=== PATIENT | male | born 1975 | race Two or more races ===

== ENCOUNTER 2019-09-23 15:11 | Inpatient (IN) | payer OTHER ==
[~2019-09-23] VITALS: Ht 175.3 cm; Wt 81.6 kg
--- NOTE | 2019-09-23 15:33 | NUR ---
CAME IN FOR R SIDED RIB PAIN, PAINFUL UPON INHALATION. TO ER BED 8, HOOKED T O MONITOR, FEBRILE AT 101.2F ORAL TEMP, CHANGED TO HOSP GOWN, COOLING MEASURES DONE, AWAITING MD BYERS.
--- NOTE | 2019-09-23 15:36 | NUR ---
DR PAINTER AT BEDSIDE
[2019-09-23] MEDS ORDERED: ACETAMINOPHEN ES 500 MG TABLET PO ONE (16:00)
[2019-09-23] MEDS ORDERED: ACETAMINOPHEN ES 500 MG TABLET ONE (16:03)
[2019-09-23 16:17] LABS: BASOPHILS % (AUTO) 0.4 % (0.0-2.0); EOSINOPHILS % (AUTO) 0.7 % (0.0-6.0); HEMATOCRIT 35 % (39-51); LYMPHOCYTES # (AUTO) 0.9 /CMM (0.8-4.8); LYMPHOCYTES % (AUTO) 11.1 % (20.0-44.0); MEAN CORPUSCULAR HGB CONC 34 g/dl (31.0-36.0); MEAN CORPUSCULAR VOLUME 86 fL (80-96); NEUTROPHILS # (AUTO) 5.8 /CMM (1.8-8.9); NEUTROPHILS % (AUTO) 74.8 % (43.0-81.0); PLATELET COUNT (AUTO) 431 /CMM (150-450); RED BLOOD CELL COUNT(AUTO) 4.12 MIL/uL (4.5-6.0); WHITE BLOOD COUNT (AUTO) 7.8 K/uL (4.3-11.0)
[2019-09-23 16:24] LABS: APPEARANCE,URINE Clear (CLEAR); BILIRUBIN,URINE SMALL (NEGATIVE); BLOOD, URINE Negative Ery/uL (NEGATIVE); KETONES,URINE Negative (NEGATIVE); LEUKOCYTE ESTERASE ,URINE Negative (NEGATIVE); NITRITE, URINE Negative (NEGATIVE); PH,URINE 8.5 (5.0-8.0); PROTEIN,URINE Trace mg/dl (NEGATIVE); UGLUCOSE Negative (NEGATIVE); UROBILINOGEN,URINE >=8.0 EU/dL (0.2)
[2019-09-23 16:25] LABS: COLOR,URINE DARK YELLOW (YELLOW)
[2019-09-23 16:30] LABS: CALCIUM, SERUM 9.1 mg/dL (8.5-10.1); CARBON DIOXIDE 32 mmol/L (21-32); CHLORIDE 96 mmol/L (98-107); CREATININE 1.3 mg/dL (0.6-1.3); GLUCOSE 101 mg/dL (74-106); POTASSIUM 3.7 mmol/L (3.5-5.1); SODIUM SERUM 134 mmol/L (136-145); UREA NITROGEN, BLOOD 9 mg/dL (7-18)
[2019-09-23 16:34] LABS: ALANINE AMINOTRANSFERASE 30 U/L (12-78); ALKALINE PHOSPHATASE 65 U/L (46-116); ASPARTATE AMINOTRANSFERASE 22 U/L (15-37); BILIRUBIN,DIRECT 0.4 mg/dL (0.0-0.2); BILIRUBIN,TOTAL 1.6 mg/dL (0.2-1.0); TOTAL PROTEIN, SERUM 7.5 g/dL (6.4-8.2)
[2019-09-23 16:42] LABS: BACTERIA,URINE None seen /HPF (None Seen); RBC,URINE 0-2 /HPF (0-2); SQUAMOUS EPITHELIAL CELL,UR Few /HPF (None Seen); WBC,URINE 0-2 /HPF (0-3)
[2019-09-23] MEDS ORDERED: AZITHROMYCIN 500 MG in IV D5W 250 ML IV ONE (17:30)
[2019-09-23] MEDS ORDERED: CEFTRIAXONE 1 G in IV D5W 50 ML IV ONE (17:30)
--- NOTE | 2019-09-23 17:31 | NUR ---
CALLED FOR TELE BED AND SUBMITTED MOVE SHEET.
[2019-09-23] MEDS ORDERED: CEFTRIAXONE 1GM BAG (ER ONLY) 50 ML IV ONE (17:48)
--- NOTE | 2019-09-23 17:48 | NUR ---
REPORT GIVEN TO NAHID ROSE. PT AWAITING TRANSFER TO FLOOR.
[2019-09-23 18:07] LABS: C-REACTIVE PROTEIN 12.5 mg/dL (0.0-0.9)
[2019-09-23] MEDS ORDERED: ONDANSETRON HCL/PF 4 MG/2 ML VIAL IVP PRN (18:30)
[2019-09-23] MEDS ORDERED: Z GUARD REMEDY 2 OZ OINT TP PRN (18:30)
[2019-09-23] MEDS ORDERED: MAGNESIUM HYDROXIDE 30 ML UDC PO PRN (18:30)
[2019-09-23] MEDS ORDERED: ZOLPIDEM TARTRATE 5 MG TABLET PO PRN (18:30)
[2019-09-23] MEDS ORDERED: MAG HYDROX/AL HYDROX/SIMETH 30 ML UDC PO PRN (18:30)
[2019-09-23] MEDS ORDERED: ACETAMINOPHEN 325 MG TABLET PO PRN (18:30)
[2019-09-23 18:50] VITALS: BP 99/58
--- NOTE | 2019-09-23 18:50 | NUR ---
CONTACT CENTER REPRESENTATIVE OPENING NOTE Received patient brought by 2 nurse from ER awake alert oriented. Hooked up to tele monitor box. No signs of distress. Obtained vital signs as follow: BP 99/58 HR 69 temp 98.1 RR 20 O2 sat 100%. No co pain or discomfort at this time. Belongings checklist was done by ER. Gave dinner to patient fresh from cafeteria gave water and cups. All needs met. Call light within reach. Safety measures implemented. Siderails up x2. Will endorse to night worker nurse for rosa.
[2019-09-23 20:00] VITALS: BP 120/71
--- NOTE | 2019-09-23 20:10 | NUR ---
RN OPENING NOTE RECEIVED PATIENT IN BED RESTING ALERT ORIENTED X4 VERBALLY RESPONSIVE NO PAIN NO DISCOMFORT NOTED,R/O FOR COVID,DROPLET ISOLATION INITIATED, BREATHING IS EVEN AND UNALBORED NO SOB NOT ACUTE DISTRESS NOTE,ON TELE MONITORING SINUS RHYTHM ON 70S,PATIENT IS AMBULATORY ABLE TO GO BATHROOM,INITIAL ASSESSMENT DONE NA INITIAL PHYSICAL ASSESSMENT DONE,HEAD TO TOE ASSESSMENT DONE,SKIN IS INTACT WARM TO TOUCH,CALL LIGHT WITHIN REACH,BED IN LOW POSITION,ROOM ORIENTATION DONE,CONTINUE TO MONITOR.
[2019-09-23] MEDS: ENOXAPARIN SODIUM 40 MG/0.4 ML DISP.SYRIN SQ SCH (20:23)
[2019-09-23] MEDS: HYDROCODONE/APAP 5/325MG 1 EACH TABLET PO PRN (23:26)
[2019-09-24] VITALS: BP_SYST 112; BP_SYST 129; BP_DIAS 64; BP_DIAS 70
[2019-09-24] MEDS: HYDROCODONE/APAP 5/325MG 1 EACH TABLET PO PRN ×4 (03:54→20:24)
[2019-09-24 04:00] VITALS: BP 121/80
--- NOTE | 2019-09-24 06:11 | NUR ---
RN CLOSING NOTE PATIENT REMAINS IN STABLE CONDITION,ALERT ORIENTED X4 RESTING IN BED NO SOB NOT ACUTE DISTRESS NOTED,PAIN MEDS GIVEN NORCO AT 4:00 AM FOR PAIN 10/15 AMBULATORY KEPT COMFORTABLE,WILL ENDORSE COMING SHIFT FOR CONTINUATION OF CARE.
[2019-09-24 06:24] LABS: BASOPHILS % (AUTO) 0.3 % (0.0-2.0); HEMATOCRIT 33 % (39-51); HEMOGLOBIN 11.5 g/dL (13.5-17.5); LYMPHOCYTES # (AUTO) 0.8 /CMM (0.8-4.8); LYMPHOCYTES % (AUTO) 10.8 % (20.0-44.0); MEAN CORPUSCULAR HGB CONC 35 g/dl (31.0-36.0); MEAN CORPUSCULAR VOLUME 85 fL (80-96); MONOCYTES % (AUTO) 13.5 % (2.0-12.0); NEUTROPHILS # (AUTO) 5.5 /CMM (1.8-8.9); NEUTROPHILS % (AUTO) 74.4 % (43.0-81.0); PLATELET COUNT (AUTO) 438 /CMM (150-450); RED BLOOD CELL COUNT(AUTO) 3.89 MIL/uL (4.5-6.0); WHITE BLOOD COUNT (AUTO) 7.4 K/uL (4.3-11.0)
[2019-09-24 07:08] LABS: THYROID STIMULATING HORMONE 1.711 uIU/mL (0.358-3.74)
[2019-09-24 07:13] LABS: CALCIUM, SERUM 8.9 mg/dL (8.5-10.1); CREATININE 1.2 mg/dL (0.6-1.3); PHOSPHORUS 3.7 mg/dL (2.5-4.9)
[2019-09-24 08:00] VITALS: BP_SYST 133; BP_DIAS 70; BP_DIAS 80
[2019-09-24] MEDS ORDERED: CEFTRIAXONE 1GM BAG (ER ONLY) 1 GM/50 ML PIGGYBACK IV SCH (09:00)
--- NOTE | 2019-09-24 09:00 | NUR ---
RN NOTES PT. CAME IN FOR RIB PAIN. CHEST X-RAY DONE, BUT I CONTACTED PT.'S DOCTOR TO INQUIRE ABOUT DOING A SEPARATE X-RAY FOR THE RIBS. WAITING FOR RESPONSE. Addendum: 09/24/19 at 0959 by YOANA ROWE RN AMEND- DR. BEAR SPOKE TO PT. REPORTED THAT NO SEPARATE X-RAY FOR THE RIBS IS NEEDED/WILL BE DONE.
--- NOTE | 2019-09-24 09:20 | NUR ---
RN NOTE PT. REPORTS PAIN OF 7-8/10 ON RIGHT RIB. ADMINISTERED NORCO ORDERED. WILL MONITOR AND REASSESS ORDERED.
--- NOTE | 2019-09-24 09:41 | NUR ---
RN OPENING NOTES RECEIVED PT. IN BED. NO ACUTE DISTRESS NOTED. PT. A&OX4. PT. ON ROOM AIR, SATURATING WELL AT 99%. PT. ON TELE MONITOR, SR NOTED. PT. R. AC #18 INTACT, PATENT, FLUSHED WELL. PT. SAFETY MAINTAINED. CALL LIGHT WITHIN REACH. WILL CONTINUE TO MONITOR
[2019-09-24 12:00] VITALS: BP 128/80
[2019-09-24 16:00] VITALS: BP 121/62
[2019-09-24] MEDS ORDERED: AZITHROMYCIN 500 MG in IV D5W 250 ML IV SCH (17:00)
[2019-09-24] MEDS ORDERED: CEFTRIAXONE 1 G in IV D5W 50 ML IV SCH (18:00)
--- NOTE | 2019-09-24 19:33 | NUR ---
RN CLOSING NOTES PT. IN BED. NO ACUTE DISTRESS NOTED. PT. A&OX4. PT. ON ROOM AIR, SATURATING WELL AT 98%. PT. ON TELE MONITOR, SR NOTED. PT. R. AC #18 INTACT, PATENT, FLUSHED WELL. PT. SAFETY MAINTAINED. CALL LIGHT WITHIN REACH. WILL ENDORSE PLAN OF CARE TO ONCOMING NURSE
[2019-09-24 20:00] VITALS: BP 120/77
--- NOTE | 2019-09-24 20:00 | NUR ---
RN OPENING NOTE PT RECEIVED IN BED RESTING. PT IS A/A/O X4. AMBULATORY .NO S/S OF RESPIRATORY DISTRESS. UN LABORED BREATHING , ON RA SATING 97%. PT HAS 18 G ON R AC SALINE LOCK, PATENT, FLUSHES WELL AND DRESSING INTACT.TELE MONITOR SHOWING SR WITH HR IN 90s. SAFETY MEASURES IN PLACE, BED AT LOWEST POSITION, LOCKED, SIDE RAILS UPx2, CALL LIGHT IN REACH. WILL CONTINUE TO MONITOR.
[2019-09-24] MEDS: ENOXAPARIN SODIUM 40 MG/0.4 ML DISP.SYRIN SQ SCH (21:19)
[2019-09-25] VITALS: BP 129/70
[2019-09-25] MEDS: HYDROCODONE/APAP 5/325MG 1 EACH TABLET PO PRN ×3 (02:21→10:49)
[2019-09-25 04:00] VITALS: BP 109/63
--- NOTE | 2019-09-25 06:29 | NUR ---
RN CLOSING NOTE PATIENT REMAINS IN STABLE CONDITION, NO ACUTE CHANGES DURING MY SHIFT. NO SOB NOT ACUTE DISTRESS NOTED, WILL ENDORSE INCOMING SHIFT FOR CONTINUITY OF CARE.
[2019-09-25 07:37] LABS: BASOPHILS % (AUTO) 0.4 % (0.0-2.0); EOSINOPHILS % (AUTO) 0.8 % (0.0-6.0); HEMATOCRIT 37 % (39-51); HEMOGLOBIN 12.1 g/dL (13.5-17.5); LYMPHOCYTES # (AUTO) 1.1 /CMM (0.8-4.8); LYMPHOCYTES % (AUTO) 12.4 % (20.0-44.0); MEAN CORPUSCULAR HGB CONC 33 g/dl (31.0-36.0); MEAN CORPUSCULAR VOLUME 86 fL (80-96); MONOCYTES # (AUTO) 0.9 /CMM (0.1-1.30); MONOCYTES % (AUTO) 10.1 % (2.0-12.0); NEUTROPHILS # (AUTO) 6.7 /CMM (1.8-8.9); NEUTROPHILS % (AUTO) 76.3 % (43.0-81.0); PLATELET COUNT (AUTO) 500 /CMM (150-450); RED BLOOD CELL COUNT(AUTO) 4.27 MIL/uL (4.5-6.0); WHITE BLOOD COUNT (AUTO) 8.8 K/uL (4.3-11.0)
[2019-09-25 07:52] LABS: CALCIUM, SERUM 9.7 mg/dL (8.5-10.1); CREATININE 1.3 mg/dL (0.6-1.3); MAGNESIUM 2.2 mg/dL (1.8-2.4); PHOSPHORUS 5.2 mg/dL (2.5-4.9); POTASSIUM 4.3 mmol/L (3.5-5.1)
--- NOTE | 2019-09-25 07:52 | NUR ---
TELE OPENING NOTE RECEIVED REPORT FROM [facility] SHIFT NURSE. PT AWAKE IN BED, ALERT AND ORIENTED X 4, ON ROOM AIR, SATURATING WELL, RESPIRATIONS EVEN AND UNLABORED, NO SIGNS OF RESPIRATORY DISTRESS NOTED. SINUS RHYTHM ON TELE MONITOR. IV SITE ON RIGHT AC G18 INTACT, PATENT, WITH SALINE LOCK IN PLACE. BED IN LOW POSITION, LOCKED, CALL LIGHT WITHIN REACH.
[2019-09-25 08:00] VITALS: BP 104/65
--- NOTE | 2019-09-25 08:30 | NUR ---
TELE OSMIN RN OPENING NOTE PT IS AWAKE IN BED, ALERT AND ORIENTED X 4, ON ROOM AIR, SATURATING WELL, RESPIRATIONS EVEN AND UNLABORED, NO SIGNS OF RESPIRATORY DISTRESS NOTED. SINUS RHYTHM ON TELE MONITOR. IV SITE ON RIGHT AC G18 INTACT, PATENT, WITH SALINE LOCK IN PLACE. BED IN LOW POSITION, LOCKED, CALL LIGHT WITHIN REACH. SIDE RAILS UP X2.WILL CONTINUE TO MONITOR
[2019-09-25 12:00] VITALS: BP 108/69
[2019-09-25 13:34] LABS: ABG BASE EXCESS 3.5 mmol/L; ABG PCO2 35.8 mmHg (35.0-45.0); ABG PH 7.491 (7.350-7.450); ABG PO2 90.9 mmHg (75.0-100.0); COHb 0.4 % (0.5-1.5); MetHb 0.1 % (0.0-1.5); O2Hb 96.5 % (94.0-97.0); SITE, ABG Right Radial; VENT MODE, BG RA
--- NOTE | 2019-09-25 13:59 | NUR ---
RELAYED ABG TO DR. LUQUE AND CLEARED PATIENT FOR DISCHARGE.
--- NOTE | 2019-09-25 13:59 | NUR ---
PER DR. BEAR OK PATIENT FOR DISCHARGE ALSO CLEARED BY DR. LUQUE,NO NEW MEDS.
--- NOTE | 2019-09-25 15:10 | NUR ---
[employer] CINDER WORKER NOTES EDUCATED PT ABOUT COVID ISOLATION AND PNEUMONIA. GUARANTEEING FOR TWO WEEKS AND TO WEAR MASK ALL THE TIME. PT'S WNL VS. SAT OF 96%.
--- NOTE | 2019-09-25 15:30 | NUR ---
PATIENT DISCHARGE AND COMPLAIN HE DID NOT NOT GET ANY PRESCRIPTION,EXPLAINED BY PRIMARY NURSE THAT PER DR. BEAR PATIENT CLEARED BY DR. LUQUE AND DIDNOT PRESCRIBED ANY ANTIBIOTICS AND FOR PAIN CAN DO OVER THE COUNTER TYLENOL.
--- NOTE | 2019-09-25 15:30 | NUR ---
[employer] CIGAR HEAD PERFORATOR NOTES PT VS WNL. DR LUQUE CLEARED TO DC AFTER ABG WAS DONE. NO FEVER. PT WAS ON ROOM AIR IN 96% SATURATION. WHEELED PATIENT OUT TO [facility].
--- NOTE | 2019-09-25 15:35 | NUR ---
RECEIVED A CALL FROM PATIENT MOTHER VERY UPSET ,SCREAMING ON PHONE WHY HER SON DISCHARGE WITHOUT ANY ANTIBIOTICS AND PAIN MEDS.EXPLAINED THAT SHE WAS SEEN AND CLEARED BY [employer] FORMULA WORKER AND PRIMARY DOCTOR FOR DISCHARGE AND PER MD NO NEW PRESCRIPTION.STILL VERY UPSET ,GAVE EPIC NUMBER UNDER DR. BEAR AND ALSO NURSING LEAF STRIPPER.
--- NOTE | 2019-09-25 15:40 | NUR ---
DR. BEAR MADE AWARE OF SITUATION PATIENT/ FAMILY COMPLAINTS PER MD PULMONARY DID NOT RECOMMEND ANTIBIOTICS AND PER DR. BEAR SHE TOLD PATIENT HE CAN TAKE OVER THE COUNTER TYLENOL.ALSO NOTIFIED GAVE THEIR EPIC NUMBER SINCE FAMILY WANTS TO TALK TO MD.
--- NOTE | 2019-09-25 15:59 | NUR ---
[facility] AWARE OF SITUATION.
--- NOTE | 2019-09-25 16:08 | NUR ---
ALSO GAVE TO DR. BEAR MOTHER PHONE NUMBER [phone] ANA HERRERA, PER CHEMA SHE WILL CALL HER.
== END 2019-09-25 14:39 | disposition home or self-care (01) | DRG 720 ==
LOC: ER 15:11 → TELE1 18:19
PROVIDERS: ADMIT Student in an Organized Health Care Education/Training Program; ATTEND Student in an Organized Health Care Education/Training Program
DX: A41.89 Other specified sepsis (principal); U07.1 COVID-19; E44.0 Moderate protein-calorie malnutrition; E87.1 Hypo-osmolality and hyponatremia; D64.9 Anemia, unspecified; J12.89 Other viral pneumonia; E88.09 Other disorders of plasma-protein metabolism, not elsewhere classified; Z68.26 Body mass index [BMI] 26.0-26.9, adult
CPT/HCPCS: 36415; 36600; 71045-TC; 80048-TC; 80061-TC; 80076-TC; 81000-TC; 82550-TC; 82553; 82728-TC; 82803-TC; 83605-TC; 83615-TC; 83735-TC; 84100-TC; 84443-TC; 84484-TC; 85025-TC; 85378-TC; 85730-TC; 86140-TC; 87040-TC; 87081-TC; 87086-TC; G0378; J0456; J0696; J1650; J7060; U0003-CS